=== PATIENT | female | born 1955 | race Caucasian/White ===

== ENCOUNTER 2018-07-14 13:44 | Emergency (ER) | payer MEDICARE ==
[~2018-07-14] VITALS: Ht 152.4 cm; Wt 78.2 kg
[~2018-07-14 13:44] MED LIST: AMARYL4 MG PO; ASPIR-LOW81 MG PO; DIOVAN HCT PO; GLUCOPHAGE XR500 M1 PO; NO HOME MEDICATIONS; PRINZIDE 25 MG-1 TAB PO; TOPROL XL25 MG PO
[2018-07-14 13:53] VITALS: TEMP 98.8
[2018-07-14 15:40] LABS: BASO # 0.1 (0.0-0.2); BASO % 0.6 % (0.0-2.0); EOS # 0.2 (0.0-0.7); EOS % 2.5 % (0-4.0); GRAN # 5.2 (1.4-6.5); GRAN % 62.3 % (42.2-75.2); HEMATOCRIT 47.2 % (37.0-47.0); LYMPH # 2.3 (1.2-3.4); LYMPH % 27.7 % (20.0-51.0); MEAN CELL VOLUME 87 fl (80.0-100.0); MEAN CORPUSCULAR HEMOGLOBIN 30 pg (27.0-31.0); MEAN CORPUSCULAR HGB CONC 34 g/dl (33.0-37.0); MEAN PLATELET VOLUME 9.2 fl (7.4-10.4); MONO # 0.5 (0.1-0.6); MONO % 6.2 % (1.7-9.3); PLATELET COUNT 221 K/mm3 (130-400); REDCELL DISTRIBUTION WIDTH-CV 12.9 % (11.5-14.5)
[2018-07-14 15:44] LABS: PROTHROMBIN TIME 10.9 SECONDS (9.7-12.8)
[2018-07-14 15:55] LABS: ALANINE AMINOTRANSFERASE 40 U/L (9-52); ALBUMIN 4.3 gm/dL (3.5-5.0); ALKALINE PHOSPHATASE 116 U/L (50-136); ANION GAP 8 mmol/L (7-16); AST,SGOT 30 U/L (15-37); BILIRUBIN,TOTAL 0.8 mg/dL (0.0-1.0); BLOOD UREA NITROGEN 17 mg/dL (7-17); CALCIUM 9.9 mg/dL (8.4-10.2); CARBON DIOXIDE 29 mmol/L (22-30); CHLORIDE 100 mmol/L (98-107); CREATININE, serum 0.59 mg/dL (0.52-1.25); GLUCOSE 233 mg/dL (74-106); SODIUM 137 mmol/L (137-145); TOTAL PROTEIN 7.3 gm/dL (6.4-8.2)
[2018-07-14 16:18] LABS: TROPONIN-I < 0.012 ng/mL (0.000-0.035)
[2018-07-14] MEDS ORDERED: KAPVAY0.1 MG PO (18:39)
[2018-07-14 19:30] VITALS: BP 153/64; PULSE 52
== END 2018-07-14 19:35 | disposition home or self-care (01) ==
LOC: COL.ER 13:44
PROVIDERS: Emergency Medicine
DX: I10 Essential (primary) hypertension (principal); E11.9 Type 2 diabetes mellitus without complications; Z90.710 Acquired absence of both cervix and uterus; Z90.89 Acquired absence of other organs; Z79.82 Long term (current) use of aspirin; Z79.84 Long term (current) use of oral hypoglycemic drugs